=== PATIENT | male | born 1965 | race African-American/Black ===

== ENCOUNTER 2020-11-23 19:36 | Inpatient (IN) ==
[2020-11-23] MEDS ORDERED: dexAMETHasone**PF** 10 MG/ML VIAL IV ONE (19:44)
[2020-11-23] MEDS ORDERED: diphenhydrAMINE 50 MG/ML VIAL IV STA (19:44)
[2020-11-23] MEDS ORDERED: SODIUM CHLORIDE 0.9% 1000ML 1,000 ML IV ONE ×2 (19:44→22:06)
[2020-11-23] MEDS ORDERED: ACETAMINOPHEN 500 MG TAB PO STA (19:44)
[2020-11-23] MEDS ORDERED: PROMETHAZINE 12.5 MG/50.5 ML BAG IV STA (19:44)
[2020-11-23] MEDS ORDERED: cefTRIAXone SODIUM 2,000 MG/70 ML BAG IV STA (19:44)
[2020-11-23 20:31] LABS: Appearance Urine Clear (Clear); Bacteria Urine Automated Negative (Negative); Bilirubin Urine Negative (Negative); Blood Urine 1+ (Negative); Color Urine Yellow; Epithelial Cell Urine Auto 20-30 /lpf (0-5); Glucose Urine UA Negative (Negative); Ketones Urine Negative (Negative); Leukocyte Esterase Urine 2+ (Negative); Nitrite Urine Negative (Negative); Specific Gravity Urine 1.014 (1.000-1.030); Urobilinogen Urine Negative (Negative); WBC Urine Automated >30 /hpf (0-5)
--- NOTE | 2020-11-23 20:39 | CT Scan Report ---
CT SCAN OF THE BRAIN WITHOUT IV CONTRAST CLINICAL HISTORY: Headache. COMPARISON STUDY: No priors. TECHNIQUE: Unenhanced axial CT scan of the brain is performed from the vertex to the skull base. A d ose lowering technique was utilized adhering to the principles of ALARA. CT DOSE: 1462.50 mGycm FINDINGS: Brain parenchyma: The brain parenchyma is normal in appearance. There is no hemorrhage, mass effect, or evidence of acute territorial ischemia by CT criteria. Sampson-white matter differentiation is preser cherrie. No extra-axial fluid collection is seen. Ventricles, sulci, cisterns: Normal in configuration. Intracranial vasculature: The visualized intracranial vasculature at the skull base is normal in appe arance. Calvarium: Unremarkable. Sinuses and mastoids: The visualized paranasal sinuses are clear. The mastoid air cells are well pneu matized. Orbits: The bony orbits are grossly intact. IMPRESSION: No acute intracranial abnormality. ACT 112: Negative or not required by law. Electronically signed by: Griffin Amos M.D. 11/23/2020 8:38 PM
--- NOTE | 2020-11-23 20:50 | Emergency Department Note ---
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 The patient had a gradual onset 2 nights ago of a headache which is frontal that he describes as the "worst headache of his life". He states the headache has been waxing and waning but was constant through the entire 2 days. He has been trying [id number] medication without relief. He denies having any trauma. He denies having any neck stiffness or back pain. He was noted to have a very elevated temperature prior to arrival. He states that he has no cough but he does smoke tobacco products. He denies having any dysuria or frequency. He has no rashes. The patient does not have any significant past medical history other than tobacco use. 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 He was not seen by a provider prior to calling 911 and come to the emergency department via ambulance. He was given Toradol and Zofran prior to arrival. He had only minimal improvement of his symptoms. ROS: See above HPI for pertinent positives & negatives. A total of 10 systems reviewed and were otherwise negative. PAST MEDICAL HISTORY: See Below PAST SURGICAL HISTORY: See Below FAMILY HISTORY: See Below SOCIAL HISTORY: See Below HOME MEDICATIONS: See Below ALLERGIES: See Below VITALS: See Below PHYSICAL EXAMINATION: GENERAL: The patient is awake and alert. He is very anxious appearing and appears to be uncomfortable. EYES: The conjunctivae are clear. The pupils are round and reactive. EARS, NOSE, MOUTH AND THROAT: The nose is without any evidence of any deformity. NECK: The neck is nontender and supple. RESPIRATORY: Diminished breath sounds are noted throughout with scattered rhonchi. CARDIOVASCULAR: Tachycardic rate with regular rhythm was noted. There was no definite murmur GASTROINTESTINAL: The abdomen is soft. Abdomen is nontender. MUSCULOSKELETAL/EXTREMITIES: There is no evidence of gross deformity full range of motion is noted in the hips and shoulders. SKIN: There is no obvious evidence of any rash. There are no petechiae, pallor or cyanosis noted. NEUROLOGIC: Patient is awake alert and oriented x3 strength is symmetric patellar reflexes are 2+ bilaterally MEDICAL DECISION MAKING: The patient is a 55-year-old male who presented to the emergency department by ambulance for an evaluation of severe headache. The patient was found to have a fever. He did not have meningismus. The patient was initially treated with Decadron and Rocephin in the emergency department because of concerns of meningitis given his significant fever. I discussed the patient's laboratory and radiographic studies with him. He was also treated with IV fluids. Ultimately the patient was found to have signs of pyelonephritis. The patient had an elevated white blood cell count as well. The patient is a fork truck operator and is not from the area. I am not sure if the patient will do well as an outpatient without at least initial inpatient management. I discussed this plan with the patient and he was agreeable. [facility] to inpatient management and they will evaluate the patient in the emergency department for further management and disposition. Triage Nursing notes reviewed. Prior medical records reviewed Vital Signs: reviewed and remarkable for tachycardia and fever. Differential diagnosis: Migraine headache, meningitis, sinusitis, CO exposure, ICH, SAH, infection, tumor, headache, sinus thrombosis, arterial dissection, as well as other pathologies. ER treatment provided: See below Diagnostics interpreted by me: ECG: EKG was obtained in the emergency department. My interpretation is sinus tachycardia at 112 bpm. There is no ectopy. There is no acute ST segment abnormalities noted. No previous tracing was available. Cardiac Monitoring: An order was placed for continuous cardiac monitoring. The monitor shows a rate of 85 bpm with sinus rhythm. Laboratory studies: As stated above and show below. Imaging studies: See below Consultation(s): I discussed this case with Dr. Sandoval who [facility] ED COURSE: Procedures: Lumbar Puncture Indication: Headache and fever. Verbal consent was obtained after the risks and benefits were explained, including but not limited to headache, bleeding/clotting, scarring, infection, pain, and bone/joint/nerve damage. At this time, the risks of the procedure are less than the risks of NOT performing the procedure. A time out was taken and the correct patient and site identified. The patient was placed in the seated position and the back was prepped with betadine and draped in the standard fashion. The L3 intervertebral space was identified, anesthetized locally with 1% lidocaine without epinephrine, and the spinal needle was inserted through the skin with the bevel parallel to the dural fibers. The needle was carefully advanced into the lumbar cistern and 4 tubes of clear CSF was obtained. The stylet was replaced and the needle was removed. A bandaid was placed and the patient was placed in the supine position. The patient tolerated the procedure well and there were no complications. Past Med/Surg History Social History Smoking Status: Current every day smoker Tobacco Type: Cigarettes Feels Safe at Home: Yes Allergies Allergies Allergy/AdvReac Type Severity Reaction Status Date / Time No Known Allergies Allergy Unverified 11/23/20 20:10 Home Meds Home Medications Medication Instructions Recorded Confirmed No Known Home Medications 11/23/20 11/23/20 Results & Data (ED) Vital Signs Vital Signs - 24 hr 11/23/20 19:51 11/23/20 20:37 11/23/20 21:00 Temperature 37.6 C H Temperature Source Oral Pulse Rate 114 H 110 H 109 H Pulse Rate [Apical] Pulse Rate from SpO2 Sensor 110 H 110 H Respiratory Rate 20 20 18 Blood Pressure 149/87 H 106/75 115/79 Blood Pressure [Left Arm] Blood Pressure Mean 107 85 91 Blood Pressure Mean [Left Arm] Pulse Oximetry 94 96 98 Oxygen Delivery Method Room Air Sepsis Recent Fever Within 48 Hours Yes Sepsis New/Unexplained Change in Mental Status N/A Sepsis Action Taken by Nursing No Action Required 11/23/20 21:30 11/23/20 22:01 11/23/20 22:29 Temperature Temperature Source Pulse Rate 106 H 100 H Pulse Rate [Apical] 101 H Pulse Rate from SpO2 Sensor 107 H Respiratory Rate 20 19 20 Blood Pressure 121/85 113/79 Blood Pressure [Left Arm] 113/79 Blood Pressure Mean 97 90 Blood Pressure Mean [Left Arm] 90 Pulse Oximetry 95 95 91 Oxygen Delivery Method Room Air Sepsis Recent Fever Within 48 Hours Sepsis New/Unexplained Change in Mental Status Sepsis Action Taken by Nursing 11/24/20 00:29 Temperature Temperature Source Pulse Rate Pulse Rate [Apical] 91 H Pulse Rate from SpO2 Sensor Respiratory Rate 20 Blood Pressure Blood Pressure [Left Arm] 120/86 Blood Pressure Mean Blood Pressure Mean [Left Arm] 97 Pulse Oximetry 92 Oxygen Delivery Method Room Air Sepsis Recent Fever Within 48 Hours Sepsis New/Unexplained Change in Mental Status Sepsis Action Taken by [facility] Medications Current Medication List: was personally reviewed by me Laboratory Data Attestation: I reviewed the patient's lab results. Result diagrams: 11/23/20 21:13 11/23/20 21:13 Lab Results 11/23/20 11/23/20 11/23/20 Range/Units 20:18 20:18 20:18 WBC (4.8-10.8) K/uL RBC (4.7-6.1) M/uL Hgb (14.0-18.0) g/dL Hct (42-52) % MCV (80-100) fL MCH (25-34) pg MCHC (32-36) g/dL RDW Std Deviation (36.4-46.3) fL RDW Coeff of Luis (11.5-14.5) % Plt Count (130-400) K/uL MPV (7.4-10.4) fL Immature Gran % (Auto) % Neut % (Auto) % Lymph % (Auto) % [place] % (Auto) % Eos % (Auto) % Baso % (Auto) % Neut # (Auto) (1.4-6.5) K/uL Lymph # (Auto) (1.2-3.4) K/uL [place] # (Auto) (0.11-0.59) K/uL Eos # (Auto) (0-0.5) K/uL Baso # (Auto) (0-0.2) K/uL Immature Gran # (Auto) (0.00-0.02) K/uL ESR (0-20) mm/hr PT (9.0-12.0) Seconds INR (0.9-1.1) APTT (21.0-31.0) Seconds PTT Ratio Sodium (136-145) mmol/L Potassium (3.5-5.1) mmol/L Chloride (98-107) mmol/L Carbon Dioxide (21-32) mmol/L Anion Gap (3-11) BUN (7-18) mg/dl Creatinine (0.6-1.4) mg/dl Est Cr Clr Drug Dosing ml/min Est GFR ( Amer) Est GFR (Non-Af Amer) BUN/Creatinine Ratio (10-20) Glucose (70-99) mg/dl Calcium (8.5-10.1) mg/dl Total Bilirubin (0.2-1) mg/dl AST (15-37) U/L ALT (12-78) U/L Alkaline Phosphatase (45-117) U/L Troponin I (0-0.045) ng/ml C-Reactive Protein (0-0.29) mg/dl Total Protein (6.4-8.2) gm/dl Albumin (3.4-5.0) gm/dl Globulin (2.5-4.0) gm/dl Albumin/Globulin Ratio (0.9-2) Procalcitonin (0-0.5) ng/ml Urine Color Yellow Urine Appearance Clear (Clear) Urine pH 8.0 H (4.5-7.5) Ur Specific [place] 1.014 (1.000-1.030) Urine Protein Trace H (Negative) Urine Glucose (UA) Negative (Negative) Urine Ketones Negative (Negative) Urine Blood 1+ H (Negative) Urine Nitrite Negative (Negative) Urine Bilirubin Negative (Negative) Urine Urobilinogen Negative (Negative) Ur Leukocyte Esterase 2+ H (Negative) Urine WBC (Auto) >30 H (0-5) /hpf Urine RBC (Auto) 5-10 H (0-4) /hpf U Hyaline Cast (Auto) 1-5 (0-5) /lpf U Epithel Cells (Auto) 20-30 H (0-5) /lpf Urine Bacteria (Auto) Negative (Negative) Fluid Comment CSF Appearance CSF Color Xanthrochromic CSF WBC (0-5) /uL CSF RBC (0-) /uL CSF Cell Count Tube # CSF Chemistry Tube # CSF Glucose (40-70) mg/dl CSF Total Protein (15-45) mg/dl COVID-19 Eval Order [facility] at [facility] SARS-CoV-2 (PCR) NEGATIVE (Negative) Influenza Type A (PCR) Negative (Neg) Influenza Type B (PCR) Negative (Neg) RSV (RT-PCR) Negative (Neg) 11/23/20 11/23/20 11/23/20 Range/Units 21:13 21:13 21:13 WBC 26.78 H (4.8-10.8) K/uL RBC 4.97 (4.7-6.1) M/uL Hgb 14.7 (14.0-18.0) g/dL Hct 41.9 L (42-52) % MCV 84.3 (80-100) fL MCH 29.6 (25-34) pg MCHC 35.1 (32-36) g/dL RDW Std Deviation 41.3 (36.4-46.3) fL RDW Coeff of Luis 13.5 (11.5-14.5) % Plt Count 291 (130-400) K/uL MPV 9.4 (7.4-10.4) fL Immature Gran % (Auto) 0.5 % Neut % (Auto) 89.7 % Lymph % (Auto) 6.2 % [place] % (Auto) 3.5 % Eos % (Auto) 0.0 % Baso % (Auto) 0.1 % Neut # (Auto) 24.02 H (1.4-6.5) K/uL Lymph # (Auto) 1.65 (1.2-3.4) K/uL [place] # (Auto) 0.94 H (0.11-0.59) K/uL Eos # (Auto) 0.00 (0-0.5) K/uL Baso # (Auto) 0.03 (0-0.2) K/uL Immature Gran # (Auto) 0.14 H (0.00-0.02) K/uL ESR (0-20) mm/hr PT 12.4 H (9.0-12.0) Seconds INR 1.2 H (0.9-1.1) APTT 28.9 (21.0-31.0) Seconds PTT Ratio 1.1 Sodium 135 L (136-145) mmol/L Potassium 3.9 (3.5-5.1) mmol/L Chloride 103 (98-107) mmol/L Carbon Dioxide 26 (21-32) mmol/L Anion Gap 6.0 (3-11) BUN 7 (7-18) mg/dl Creatinine 1.14 (0.6-1.4) mg/dl Est Cr Clr Drug Dosing 82.7 ml/min Est GFR ( Amer) 84.0 Est GFR (Non-Af Amer) 72.5 BUN/Creatinine Ratio 6.1 L (10-20) Glucose 100 H (70-99) mg/dl Calcium 8.8 (8.5-10.1) mg/dl Total Bilirubin 0.6 (0.2-1) mg/dl AST 18 (15-37) U/L ALT 44 (12-78) U/L Alkaline Phosphatase 97 (45-117) U/L Troponin I < 0.015 (0-0.045) ng/ml C-Reactive Protein 16.20 H (0-0.29) mg/dl Total Protein 7.5 (6.4-8.2) gm/dl Albumin 3.1 L (3.4-5.0) gm/dl Globulin 4.4 H (2.5-4.0) gm/dl Albumin/Globulin Ratio 0.7 L (0.9-2) Procalcitonin (0-0.5) ng/ml Urine Color Urine Appearance (Clear) Urine pH (4.5-7.5) Ur Specific [place] (1.000-1.030) Urine Protein (Negative) Urine Glucose (UA) (Negative) Urine Ketones (Negative) Urine Blood (Negative) Urine Nitrite (Negative) Urine Bilirubin (Negative) Urine Urobilinogen (Negative) Ur Leukocyte Esterase (Negative) Urine WBC (Auto) (0-5) /hpf Urine RBC (Auto) (0-4) /hpf U Hyaline Cast (Auto) (0-5) /lpf U Epithel Cells (Auto) (0-5) /lpf Urine Bacteria (Auto) (Negative) Fluid Comment CSF Appearance CSF Color Xanthrochromic CSF WBC (0-5) /uL CSF RBC (0-) /uL CSF Cell Count Tube # CSF Chemistry Tube # CSF Glucose (40-70) mg/dl CSF Total Protein (15-45) mg/dl COVID-19 Eval Order SARS-CoV-2 (PCR) (Negative) Influenza Type A (PCR) (Neg) Influenza Type B (PCR) (Neg) RSV (RT-PCR) (Neg) 11/23/20 11/23/20 11/23/20 Range/Units 21:13 21:13 22:02 WBC (4.8-10.8) K/uL RBC (4.7-6.1) M/uL Hgb (14.0-18.0) g/dL Hct (42-52) % MCV (80-100) fL MCH (25-34) pg MCHC (32-36) g/dL RDW Std Deviation (36.4-46.3) fL RDW Coeff of Luis (11.5-14.5) % Plt Count (130-400) K/uL MPV (7.4-10.4) fL Immature Gran % (Auto) % Neut % (Auto) % Lymph % (Auto) % [place] % (Auto) % Eos % (Auto) % Baso % (Auto) % Neut # (Auto) (1.4-6.5) K/uL Lymph # (Auto) (1.2-3.4) K/uL [place] # (Auto) (0.11-0.59) K/uL Eos # (Auto) (0-0.5) K/uL Baso # (Auto) (0-0.2) K/uL Immature Gran # (Auto) (0.00-0.02) K/uL ESR 22 H (0-20) mm/hr PT (9.0-12.0) Seconds INR (0.9-1.1) APTT (21.0-31.0) Seconds PTT Ratio Sodium (136-145) mmol/L Potassium (3.5-5.1) mmol/L Chloride (98-107) mmol/L Carbon Dioxide (21-32) mmol/L Anion Gap (3-11) BUN (7-18) mg/dl Creatinine (0.6-1.4) mg/dl Est Cr Clr Drug Dosing ml/min Est GFR ( Amer) Est GFR (Non-Af Amer) BUN/Creatinine Ratio (10-20) Glucose (70-99) mg/dl Calcium (8.5-10.1) mg/dl Total Bilirubin (0.2-1) mg/dl AST (15-37) U/L ALT (12-78) U/L Alkaline Phosphatase (45-117) U/L Troponin I (0-0.045) ng/ml C-Reactive Protein (0-0.29) mg/dl Total Protein (6.4-8.2) gm/dl Albumin (3.4-5.0) gm/dl Globulin (2.5-4.0) gm/dl Albumin/Globulin Ratio (0.9-2) Procalcitonin 0.91 H (0-0.5) ng/ml Urine Color Urine Appearance (Clear) Urine pH (4.5-7.5) Ur Specific [place] (1.000-1.030) Urine Protein (Negative) Urine Glucose (UA) (Negative) Urine Ketones (Negative) Urine Blood (Negative) Urine Nitrite (Negative) Urine Bilirubin (Negative) Urine Urobilinogen (Negative) Ur Leukocyte Esterase (Negative) Urine WBC (Auto) (0-5) /hpf Urine RBC (Auto) (0-4) /hpf U Hyaline Cast (Auto) (0-5) /lpf U Epithel Cells (Auto) (0-5) /lpf Urine Bacteria (Auto) (Negative) Fluid Comment CSF Appearance Clear CSF Color Colorless Xanthrochromic No xanthochromia CSF WBC 2 (0-5) /uL CSF RBC 8 (0-) /uL CSF Cell Count Tube # 3 CSF Chemistry Tube # 1 CSF Glucose 70 (40-70) mg/dl CSF Total Protein 83.6 H (15-45) mg/dl COVID-19 Eval Order SARS-CoV-2 (PCR) (Negative) Influenza Type A (PCR) (Neg) Influenza Type B (PCR) (Neg) RSV (RT-PCR) (Neg) Administered Medications Discontinued Medications Acetaminophen (Acetaminophen 500 Mg Tab) 1,000 mg PO NOW STA Stop: 11/23/20 19:45 Last Admin: 11/23/20 20:24 Dose: 1,000 mg Documented by: [id number] Dexamethasone Sodium Phosphate (DexamethasonePf 10 Mg/Ml Vial) 10 mg IV NOW ONE Stop: 11/23/20 19:45 Last Admin: 11/23/20 20:24 Dose: 10 mg Documented by: [id number] Diphenhydramine HCl (Diphenhydramine 50 Mg/Ml Vial) 25 mg IV NOW STA Stop: 11/23/20 19:45 Last Admin: 11/23/20 20:24 Dose: 25 mg Documented by: [id number] Sodium Chloride (Nss 1000ml) 1,000 mls @ 999 mls/hr IV .Q1H1M ONE Stop: 11/23/20 20:44 Last Infusion: 11/23/20 21:17 Dose: 0 mls/hr Documented by: [id number] Admin: 11/23/20 20:24 Dose: 999 mls/hr Documented by: [id number] Promethazine HCl (Phenergan) 12.5 mg in 50.5 mls @ 202 mls/hr IV NOW STA Stop: 11/23/20 19:58 Last Infusion: 11/23/20 20:38 Dose: 0 mls/hr Documented by: [id number] Admin: 11/23/20 20:24 Dose: 202 mls/hr Documented by: [id number] Ceftriaxone Sodium (Rocephin) 2,000 mg in 70 mls @ 140 mls/hr IV NOW STA Stop: 11/23/20 20:13 Last Infusion: 11/23/20 21:17 Dose: 0 mls/hr Documented by: [id number] Admin: 11/23/20 20:38 Dose: 140 mls/hr Documented by: [id number] Sodium Chloride (Nss 1000ml) 1,000 mls @ 999 mls/hr IV .Q1H1M ONE Stop: 11/23/20 23:06 Last Infusion: 11/23/20 23:28 Dose: 0 mls/hr Documented by: [id number] Admin: 11/23/20 22:22 Dose: 999 mls/hr Documented by: [id number] Ioversol (Optiray 300 100ml) 89 ml IV ONCE ONE Stop: 11/23/20 22:49 Last Admin: 11/23/20 22:48 Dose: 89 ml Documented by: [id number] Imaging Data Radiologist's Impression: Chest X-Ray 11/23/20 19:44 SINGLE VIEW CHEST CLINICAL HISTORY: Fever. FINDINGS: An AP, portable, upright chest radiograph is obtained. No prior studies are available for comparison at the time of dictation. The cardiome diastinal silhouette is unremarkable. There is mild bibasilar atelectasis. No airspace consolidation or large pleural effusion is identified. No pneumothorax is seen. The bony thorax is grossly intact. IMPRESSION: No active disease in the chest. ACT 112: Negative or not required by law. Electronically signed by: Griffin Amos M.D. 11/23/2020 10:[address] 11/23/20 19:44 CT SCAN OF THE BRAIN WITHOUT IV CONTRAST CLINICAL HISTORY: Headache. COMPARISON STUDY: No priors. TECHNIQUE: Unenhanced axial CT scan of the brain is performed from the vertex to the skull base. A dose lowering technique was utilized adhering to the principles of ALARA. CT DOSE: 1462.50 mGycm FINDINGS: Brain parenchyma: The brain parenchyma is normal in appearance. There is no hemorrhage, mass effect, or evidence of acute territorial ischemia by CT criteria. Sampson-white matter differentiation is preserved. No extra-axial fluid collection is seen. Ventricles, sulci, cisterns: Normal in configuration. Intracranial vasculature: The visualized intracranial vasculature at the skull base is normal in appearance. Calvarium: Unremarkable. Sinuses and mastoids: The visualized paranasal sinuses are clear. The mastoid air cells are well pneumatized. Orbits: The bony orbits are grossly intact. IMPRESSION: No acute intracranial abnormality. ACT 112: Negative or not required by law. Electronically signed by: Griffin Amos M.D. 11/23/2020 8:38 PM Abdomen/Pelvis CT 11/23/20 22:06 CT SCAN OF THE ABDOMEN AND PELVIS WITH IV CONTRAST CLINICAL HISTORY: Fever. COMPARISON STUDY: No priors. TECHNIQUE: Following the IV administration of 89 cc of Optiray 320, CT scan of the abdomen and pelvis is performed from the lung bases to the proximal femora. Images are reviewed in the axial, sagittal, and coronal planes. IV contrast was administered without complication. A dose lowering technique was utilized adhering to the principles of ALARA. The examination is compromised by motion artifact. CT DOSE: 620.61 mGy.cm FINDINGS: Lung bases: The heart is normal in size and without pericardial effusion. The lung bases are clear noting bibasilar atelectasis. Liver: The contrast-enhanced liver is normal in size, contour, and attenuation. There is no intrahepatic biliary ductal dilatation. The hepatic veins and portal veins are patent. Gallbladder: Unremarkable. Spleen: Normal in size and attenuation. Pancreas: Unremarkable. Adrenal glands: Unremarkable. Kidneys: The contrast enhanced kidneys are normal in size and without hydronephrosis. The kidneys enhance symmetrically. Abdominal vasculature: The abdominal aorta is normal in course and caliber noting scattered foci of atherosclerotic calcification. Bowel: There is no bowel obstruction. The appendix is well-visualized and normal. Peritoneum: No intraperitoneal free air is identified. Trace free fluid is seen in the pelvis. There is a fat-containing umbilical hernia. Lymphadenopathy: Mildly enlarged retroperitoneal and left iliac chain lymph nodes measure up to 10 mm in short axis. A mildly enlarged left inguinal node with surrounding infiltration on image #465 measures 2.3 x 1.4 cm. Pelvic viscera: The prostate gland is mildly enlarged and heterogeneous noting median lobe hypertrophy. The bladder wall appears thickened and trabeculated indicating chronic outlet obstruction. Skeletal structures: There is moderate lumbosacral spondylosis. No lytic or blastic lesions are seen. IMPRESSION: 1. There is a mildly enlarged left inguinal lymph node with surrounding infiltration, as well as minimally enlarged left iliac chain and retroperitoneal nodes. These are nonspecific and likely reactive. Correlated clearly for evidence of a left lower extremity infectious/inflammatory process. 2. Trace nonspecific free fluid in the pelvis is a nonspecific but abnormal finding and may be reactive. 3. Additional findings as above. ACT 112: Negative or not required by law. Electronically signed by: Griffin Amos M.D. 11/23/2020 11:08 PM Discharge Plan Visit Data Chief Complaint: Headache Stated Complaint: HEADACHE ED Provider: Luke Fabian Discharge Problem: Acute pyelonephritis, Headache, Fever Patient Disposition: Being Evaluated by Hospitalist Condition: Good Forms Stand Alone Forms: [id number] Prescriptions Prescriptions: No Action No Known Home Medications RF: 0 Referrals Referrals: PCP,NO [Primary Care Provider] - Discharge Problem: Headache Qualifiers: Headache type: unspecified Headache chronicity pattern: unspecified pattern Intractability: not intractable Qualified Code(s): R51.9 - Headache, unspecified Fever Qualifiers: Fever type: unspecified Qualified Code(s): R50.9 - Fever, unspecified
[2020-11-23 20:56] LABS: Protein Urine Trace (Negative)
[2020-11-23 21:31] LABS: Influenza A virus by PCR Negative (Neg); Influenza B virus by PCR Negative (Neg); RSV by PCR Negative (Neg); SARS CoV2 RNA(COVID-19) InHosp NEGATIVE (Negative)
[2020-11-23 21:34] LABS: Hematocrit (blood only) 41.9 % (42-52); Hemoglobin 14.7 g/dL (14.0-18.0); Mean Corpuscular Hemoglobin 29.6 pg (25-34); Mean Corpuscular Hgb Conc 35.1 g/dL (32-36); Mean Corpuscular Volume 84.3 fL (80-100); Mean Platelet Volume 9.4 fL (7.4-10.4); Platelet Count 291 K/uL (130-400); RDW Coefficient of Variation 13.5 % (11.5-14.5); RDW Standard Deviation 41.3 fL (36.4-46.3); Red Blood Count 4.97 M/uL (4.7-6.1); White Blood Count 26.78 K/uL (4.8-10.8)
[2020-11-23 21:47] LABS: INR 1.2 (0.9-1.1); Partial Thromboplastin Ratio 1.1; Partial Thromboplastin Time 28.9 Seconds (21.0-31.0); Prothrombin Time 12.4 Seconds (9.0-12.0)
[2020-11-23 21:55] LABS: Alanine Aminotransferase 44 U/L (12-78); Albumin Level 3.1 gm/dl (3.4-5.0); Aspartate Aminotransferase 18 U/L (15-37); BUN Creatinine Ratio 6.1 (10-20); Blood Urea Nitrogen 7 mg/dl (7-18); Calcium 8.8 mg/dl (8.5-10.1); Carbon Dioxide 26 mmol/L (21-32); Chloride 103 mmol/L (98-107); Creatinine Clr Calc Pharmacy 82.7 ml/min; Est GFR (Non-African American) 72.5; Glucose 100 mg/dl (70-99); Potassium 3.9 mmol/L (3.5-5.1); Sodium 135 mmol/L (136-145)
[2020-11-23 22:00] LABS: Albumin Globulin Ratio 0.7 (0.9-2); Alkaline Phosphatase 97 U/L (45-117); Bilirubin,Total 0.6 mg/dl (0.2-1); Globulin 4.4 gm/dl (2.5-4.0); Total Protein 7.5 gm/dl (6.4-8.2); Troponin I < 0.015 ng/ml (0-0.045)
[2020-11-23 22:24] LABS: Basophils # (auto) 0.03 K/uL (0-0.2); Basophils % (auto) 0.1 %; Immature Granulocytes # (auto) 0.14 K/uL (0.00-0.02); Immature Granulocytes % (auto) 0.5 %; Lymphocytes # (auto) 1.65 K/uL (1.2-3.4); Lymphocytes % (auto) 6.2 %; Monocytes # (auto) 0.94 K/uL (0.11-0.59); Monocytes % (auto) 3.5 %; Neutrophils # (auto) 24.02 K/uL (1.4-6.5); Neutrophils % (auto) 89.7 %
--- NOTE | 2020-11-23 22:33 | XRay Report ---
SINGLE VIEW CHEST CLINICAL HISTORY: Fever. FINDINGS: An AP, portable, upright chest radiograph is obtained. No prior studies are available for c omparison at the time of dictation. The cardiomediastinal silhouette is unremarkable. There is mild bibasilar atelectasis. No airspace consolidation or large pleural effusion is identified. No pneumoth orax is seen. The bony thorax is grossly intact. IMPRESSION: No active disease in the chest. ACT 112: Negative or not required by law. Electronically signed by: Griffin Amos M.D. 11/23/2020 10:32 PM
[2020-11-23 22:39] LABS: CSF Glucose 70 mg/dl (40-70); Total Protein CSF 83.6 mg/dl (15-45)
[2020-11-23 22:47] LABS: Appearance CSF Clear; CSF Count Tube # 3; CSF Xanthrochromic No xanthochromia; Color CSF Colorless; Red Blood Cell CSF (A) 8 /uL (0-); White Blood Cell CSF (A) 2 /uL (0-5)
[2020-11-23] MEDS ORDERED: OPTIRAY 300 100mL IV ONE (22:48)
--- NOTE | 2020-11-23 23:10 | CT Scan Report ---
CT SCAN OF THE ABDOMEN AND PELVIS WITH IV CONTRAST CLINICAL HISTORY: Fever. COMPARISON STUDY: No priors. TECHNIQUE: Following the IV administration of 89 cc of Optiray 320, CT scan of the abdomen and pelvi s is performed from the lung bases to the proximal femora. Images are reviewed in the axial, sagittal , and coronal planes. IV contrast was administered without complication. A dose lowering technique wa s utilized adhering to the principles of ALARA. The examination is compromised by motion artifact. CT DOSE: 620.61 mGy.cm FINDINGS: Lung bases: The heart is normal in size and without pericardial effusion. The lung bases are clear no ting bibasilar atelectasis. Liver: The contrast-enhanced liver is normal in size, contour, and attenuation. There is no intrahepa tic biliary ductal dilatation. The hepatic veins and portal veins are patent. Gallbladder: Unremarkable. Spleen: Normal in size and attenuation. Pancreas: Unremarkable. Adrenal glands: Unremarkable. Kidneys: The contrast enhanced kidneys are normal in size and without hydronephrosis. The kidneys enh ance symmetrically. Abdominal vasculature: The abdominal aorta is normal in course and caliber noting scattered foci of a therosclerotic calcification. Bowel: There is no bowel obstruction. The appendix is well-visualized and normal. Peritoneum: No intraperitoneal free air is identified. Trace free fluid is seen in the pelvis. There is a fat-containing umbilical hernia. Lymphadenopathy: Mildly enlarged retroperitoneal and left iliac chain lymph nodes measure up to 10 mm in short axis. A mildly enlarged left inguinal node with surrounding infiltration on image #465 seven ures 2.3 x 1.4 cm. Pelvic viscera: The prostate gland is mildly enlarged and heterogeneous noting median lobe hypertroph y. The bladder wall appears thickened and trabeculated indicating chronic outlet obstruction. Skeletal structures: There is moderate lumbosacral spondylosis. No lytic or blastic lesions are seen. IMPRESSION: 1. There is a mildly enlarged left inguinal lymph node with surrounding infiltration, as well as mini luan enlarged left iliac chain and retroperitoneal nodes. These are nonspecific and likely reactive. Correlated clearly for evidence of a left lower extremity infectious/inflammatory process. 2. Trace nonspecific free fluid in the pelvis is a nonspecific but abnormal finding and may be reacti ve. 3. Additional findings as above. ACT 112: Negative or not required by law. Electronically signed by: Griffin Amos M.D. 11/23/2020 11:08 PM
[2020-11-23 23:14] LABS: CSF Chemistry Tube # 1
--- NOTE | 2020-11-24 00:45 | History & Physical Report ---
Date of Service November 24, 2020 Assessment & Plan (1) Headache: 2d of severe VALENZUELA, report of fever, laboratory evidence of infection to include leukocytosis, elevated procalcitonin. LP performed by ER staff with elevated protein of 83.6, otherwise unremarkable. Gram stain with no WBC or organisms. Concern for aseptic meningitis as underlying cause. Patient presently afebrile, HD stable, nonfocal neurological exam. Altered level of consciousness seems to have occurred after receiving Benadryl and Phenergen in the ER. Immunocompetent -Observation to medical -Check CSF panel -Neuro checks with [facility] -MRI brain Present on Admission?: Yes (2) Fever: Follow cultures -Empiric Vancomycin and Ceftriaxone Present on Admission?: Yes History of Present Illness Chief Complaint: Headache Primary Care Provider: NO PCP Kevin Waite is a 55yo male with no significant past medical history presenting with VALENZUELA and fever. 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 He reports gradual onset of VALENZUELA over the last 2 nights - frontal, severe, "worst headache of his life has been present the entire time but waxing and waning in severity. OTC agents with no relief. He denies trauma, neck stiffness, back pain, CP, palpitations, cough, SOB, abdominal pain, nausea, vomiting, diarrhea or constipation Denies rigors, malaise, back pain, flank pain, dysuria, rashes, joint pain. NO additional complaints at this time. Patient reportedly febrile to 103 prior to arrival. He received Benadryl and Phenergan prior to my encounter - patient quite somnolent but arousable -answers some questions appropriately then falls back to sleep LP performed in the ER ER Course: Dexamethasone, Benadryl,, Phenergan NSS, Tylenol, Ceftriaxone Allergies Allergy/AdvReac Type Severity Reaction Status Date / Time No Known Allergies Allergy Unverified 11/23/20 20:10 Home Medications Medication Instructions Recorded Confirmed Type No Known Home Medications 11/23/20 11/23/20 History Past Med/Surg History Medical History (Updated 11/24/20 @ 03:47 by Maria Fernanda Sandoval DO) No significant past medical history Surgical History (Updated 11/24/20 @ 03:47 by Maria Fernanda Sandoval DO) No significant past surgical history Family History (Updated 11/24/20 @ 03:47 by Maria Fernanda Sandoval DO) Other No significant family history Social History Smoking Status: Current every day smoker Tobacco Type: Cigarettes Cigarettes Per Day: 20; Hx Alcohol Use: No Hx Substance Use: No Preferred Language: Wolof Communication Ability: Effective Direct Care Worker Required: No Beliefs That Will Affect Care: None Current Living Situation: Parent Other Information That Helps Us Care for You: No Feels Safe at Home: Yes Safety Concerns: Feels Safe At This Time Assistive Devices: Glasses Review of Systems Review of Systems: All systems reviewed & are unremarkable except as noted in HPI & below Physical Exam Physical Exam: General: patient somnolent, arousable, answers questions appropriately then returns to sleep, non-toxic in appearance, AA&O x 3 Skin: warm, dry, intact, no rashes or lesions HEENT: NC/AT, Pupils small, equal and round bilaterally, reactive to light, EOMI, anicteric sclera, conjunctiva without injection, external ear normal to inspection and nontender, nares patent, moist mucus membranes, dentition intact, no oropharyngeal lesions, neck supple, trachea midline, no LAD, no thyromegaly, no JVD Heart: +S1/S2, regular, no m/r/g Lungs: equal air entry bilaterally, no rales/rhonchi/wheezes Abd: +BS, soft, NT/ND, no masses/organomegaly/ascites Ext: warm, 2+ pulses in UE/LE bilaterally, no clubbing/cyanosis or edema Neuro: nonfocal, patient somnolent, arousable, AA&O x 3, speech intact, no facial droop, moving all extremities on command with equal strength 5/5 Results & Data Results & Data ([facility]) Vital Signs (Past 12 Hours) Vital Signs Temp Pulse Pulse Resp BP BP Pulse Ox 11/24/20 00:29 91 H 20 120/86 92 11/23/20 22:29 101 H 20 113/79 91 11/23/20 22:01 100 H 19 113/79 95 11/23/20 21:30 106 H 20 121/85 95 11/23/20 21:00 109 H 18 115/79 98 11/23/20 20:37 110 H 20 106/75 96 11/23/20 19:51 37.6 C H 114 H 20 149/87 H 94 Laboratory Results Lab Results 11/23/20 11/23/20 11/23/20 Range/Units 20:18 20:18 20:18 WBC (4.8-10.8) K/uL RBC (4.7-6.1) M/uL Hgb (14.0-18.0) g/dL Hct (42-52) % MCV (80-100) fL MCH (25-34) pg MCHC (32-36) g/dL RDW Std Deviation (36.4-46.3) fL RDW Coeff of Luis (11.5-14.5) % Plt Count (130-400) K/uL MPV (7.4-10.4) fL Immature Gran % (Auto) % Neut % (Auto) % Lymph % (Auto) % Walsh % (Auto) % Eos % (Auto) % Baso % (Auto) % Neut # (Auto) (1.4-6.5) K/uL Lymph # (Auto) (1.2-3.4) K/uL Walsh # (Auto) (0.11-0.59) K/uL Eos # (Auto) (0-0.5) K/uL Baso # (Auto) (0-0.2) K/uL Immature Gran # (Auto) (0.00-0.02) K/uL ESR (0-20) mm/hr PT (9.0-12.0) Seconds INR (0.9-1.1) APTT (21.0-31.0) Seconds PTT Ratio Sodium (136-145) mmol/L Potassium (3.5-5.1) mmol/L Chloride (98-107) mmol/L Carbon Dioxide (21-32) mmol/L Anion Gap (3-11) BUN (7-18) mg/dl Creatinine (0.6-1.4) mg/dl Est Cr Clr Drug Dosing ml/min Est GFR ( Amer) Est GFR (Non-Af Amer) BUN/Creatinine Ratio (10-20) Glucose (70-99) mg/dl Calcium (8.5-10.1) mg/dl Magnesium (1.8-2.4) mg/dl Total Bilirubin (0.2-1) mg/dl AST (15-37) U/L ALT (12-78) U/L Alkaline Phosphatase (45-117) U/L Total Creatine Kinase (39-308) U/L Troponin I (0-0.045) ng/ml C-Reactive Protein (0-0.29) mg/dl Total Protein (6.4-8.2) gm/dl Albumin (3.4-5.0) gm/dl Globulin (2.5-4.0) gm/dl Albumin/Globulin Ratio (0.9-2) Procalcitonin (0-0.5) ng/ml Urine Color Yellow Urine Appearance Clear (Clear) Urine pH 8.0 H (4.5-7.5) Ur Specific Cocoa 1.014 (1.000-1.030) Urine Protein Trace H (Negative) Urine Glucose (UA) Negative (Negative) Urine Ketones Negative (Negative) Urine Blood 1+ H (Negative) Urine Nitrite Negative (Negative) Urine Bilirubin Negative (Negative) Urine Urobilinogen Negative (Negative) Ur Leukocyte Esterase 2+ H (Negative) Urine WBC (Auto) >30 H (0-5) /hpf Urine RBC (Auto) 5-10 H (0-4) /hpf U Hyaline Cast (Auto) 1-5 (0-5) /lpf U Epithel Cells (Auto) 20-30 H (0-5) /lpf Urine Bacteria (Auto) Negative (Negative) Fluid Comment CSF Appearance CSF Color Xanthrochromic CSF WBC (0-5) /uL CSF RBC (0-) /uL CSF Cell Count Tube # CSF Chemistry Tube # CSF Glucose (40-70) mg/dl CSF Total Protein (15-45) mg/dl Urine Opiates Screen (Neg) Ur Methadone, Qual (Neg) Urine Barbiturates (Neg) Ur Phencyclidine (PCP) (Neg) U Amphetamin/Meth Scrn (Neg) MDMA (Ecstasy) Screen (Neg) U Benzodiazepines Scrn (Neg) Ur Cocaine Metabolite (Neg) U Marijuana (THC) Screen (Neg) COVID-19 Eval Order CovFluRsv at [facility] SARS-CoV-2 (PCR) NEGATIVE (Negative) Influenza Type A (PCR) Negative (Neg) Influenza Type B (PCR) Negative (Neg) RSV (RT-PCR) Negative (Neg) 11/23/20 11/23/20 11/23/20 Range/Units 20:18 21:13 21:13 WBC 26.78 H (4.8-10.8) K/uL RBC 4.97 (4.7-6.1) M/uL Hgb 14.7 (14.0-18.0) g/dL Hct 41.9 L (42-52) % MCV 84.3 (80-100) fL MCH 29.6 (25-34) pg MCHC 35.1 (32-36) g/dL RDW Std Deviation 41.3 (36.4-46.3) fL RDW Coeff of Luis 13.5 (11.5-14.5) % Plt Count 291 (130-400) K/uL MPV 9.4 (7.4-10.4) fL Immature Gran % (Auto) 0.5 % Neut % (Auto) 89.7 % Lymph % (Auto) 6.2 % Walsh % (Auto) 3.5 % Eos % (Auto) 0.0 % Baso % (Auto) 0.1 % Neut # (Auto) 24.02 H (1.4-6.5) K/uL Lymph # (Auto) 1.65 (1.2-3.4) K/uL Walsh # (Auto) 0.94 H (0.11-0.59) K/uL Eos # (Auto) 0.00 (0-0.5) K/uL Baso # (Auto) 0.03 (0-0.2) K/uL Immature Gran # (Auto) 0.14 H (0.00-0.02) K/uL ESR (0-20) mm/hr PT 12.4 H (9.0-12.0) Seconds INR 1.2 H (0.9-1.1) APTT 28.9 (21.0-31.0) Seconds PTT Ratio 1.1 Sodium (136-145) mmol/L Potassium (3.5-5.1) mmol/L Chloride (98-107) mmol/L Carbon Dioxide (21-32) mmol/L Anion Gap (3-11) BUN (7-18) mg/dl Creatinine (0.6-1.4) mg/dl Est Cr Clr Drug Dosing ml/min Est GFR ( Amer) Est GFR (Non-Af Amer) BUN/Creatinine Ratio (10-20) Glucose (70-99) mg/dl Calcium (8.5-10.1) mg/dl Magnesium (1.8-2.4) mg/dl Total Bilirubin (0.2-1) mg/dl AST (15-37) U/L ALT (12-78) U/L Alkaline Phosphatase (45-117) U/L Total Creatine Kinase (39-308) U/L Troponin I (0-0.045) ng/ml C-Reactive Protein (0-0.29) mg/dl Total Protein (6.4-8.2) gm/dl Albumin (3.4-5.0) gm/dl Globulin (2.5-4.0) gm/dl Albumin/Globulin Ratio (0.9-2) Procalcitonin (0-0.5) ng/ml Urine Color Urine Appearance (Clear) Urine pH (4.5-7.5) Ur Specific Cocoa (1.000-1.030) Urine Protein (Negative) Urine Glucose (UA) (Negative) Urine Ketones (Negative) Urine Blood (Negative) Urine Nitrite (Negative) Urine Bilirubin (Negative) Urine Urobilinogen (Negative) Ur Leukocyte Esterase (Negative) Urine WBC (Auto) (0-5) /hpf Urine RBC (Auto) (0-4) /hpf U Hyaline Cast (Auto) (0-5) /lpf U Epithel Cells (Auto) (0-5) /lpf Urine Bacteria (Auto) (Negative) Fluid Comment CSF Appearance CSF Color Xanthrochromic CSF WBC (0-5) /uL CSF RBC (0-) /uL CSF Cell Count Tube # CSF Chemistry Tube # CSF Glucose (40-70) mg/dl CSF Total Protein (15-45) mg/dl Urine Opiates Screen Neg (Neg) Ur Methadone, Qual Neg (Neg) Urine Barbiturates Neg (Neg) Ur Phencyclidine (PCP) Neg (Neg) U Amphetamin/Meth Scrn Pos H (Neg) MDMA (Ecstasy) Screen Pos H (Neg) U Benzodiazepines Scrn Neg (Neg) Ur Cocaine Metabolite Neg (Neg) U Marijuana (THC) Screen Pos H (Neg) COVID-19 Eval Order SARS-CoV-2 (PCR) (Negative) Influenza Type A (PCR) (Neg) Influenza Type B (PCR) (Neg) RSV (RT-PCR) (Neg) 11/23/20 11/23/20 11/23/20 Range/Units 21:13 21:13 21:13 WBC (4.8-10.8) K/uL RBC (4.7-6.1) M/uL Hgb (14.0-18.0) g/dL Hct (42-52) % MCV (80-100) fL MCH (25-34) pg MCHC (32-36) g/dL RDW Std Deviation (36.4-46.3) fL RDW Coeff of Luis (11.5-14.5) % Plt Count (130-400) K/uL MPV (7.4-10.4) fL Immature Gran % (Auto) % Neut % (Auto) % Lymph % (Auto) % Walsh % (Auto) % Eos % (Auto) % Baso % (Auto) % Neut # (Auto) (1.4-6.5) K/uL Lymph # (Auto) (1.2-3.4) K/uL Walsh # (Auto) (0.11-0.59) K/uL Eos # (Auto) (0-0.5) K/uL Baso # (Auto) (0-0.2) K/uL Immature Gran # (Auto) (0.00-0.02) K/uL ESR 22 H (0-20) mm/hr PT (9.0-12.0) Seconds INR (0.9-1.1) APTT (21.0-31.0) Seconds PTT Ratio Sodium 135 L (136-145) mmol/L Potassium 3.9 (3.5-5.1) mmol/L Chloride 103 (98-107) mmol/L Carbon Dioxide 26 (21-32) mmol/L Anion Gap 6.0 (3-11) BUN 7 (7-18) mg/dl Creatinine 1.14 (0.6-1.4) mg/dl Est Cr Clr Drug Dosing 82.7 ml/min Est GFR ( Amer) 84.0 Est GFR (Non-Af Amer) 72.5 BUN/Creatinine Ratio 6.1 L (10-20) Glucose 100 H (70-99) mg/dl Calcium 8.8 (8.5-10.1) mg/dl Magnesium 1.7 L (1.8-2.4) mg/dl Total Bilirubin 0.6 (0.2-1) mg/dl AST 18 (15-37) U/L ALT 44 (12-78) U/L Alkaline Phosphatase 97 (45-117) U/L Total Creatine Kinase 109 (39-308) U/L Troponin I < 0.015 (0-0.045) ng/ml C-Reactive Protein 16.20 H (0-0.29) mg/dl Total Protein 7.5 (6.4-8.2) gm/dl Albumin 3.1 L (3.4-5.0) gm/dl Globulin 4.4 H (2.5-4.0) gm/dl Albumin/Globulin Ratio 0.7 L (0.9-2) Procalcitonin 0.91 H (0-0.5) ng/ml Urine Color Urine Appearance (Clear) Urine pH (4.5-7.5) Ur Specific Cocoa (1.000-1.030) Urine Protein (Negative) Urine Glucose (UA) (Negative) Urine Ketones (Negative) Urine Blood (Negative) Urine Nitrite (Negative) Urine Bilirubin (Negative) Urine Urobilinogen (Negative) Ur Leukocyte Esterase (Negative) Urine WBC (Auto) (0-5) /hpf Urine RBC (Auto) (0-4) /hpf U Hyaline Cast (Auto) (0-5) /lpf U Epithel Cells (Auto) (0-5) /lpf Urine Bacteria (Auto) (Negative) Fluid Comment CSF Appearance CSF Color Xanthrochromic CSF WBC (0-5) /uL CSF RBC (0-) /uL CSF Cell Count Tube # CSF Chemistry Tube # CSF Glucose (40-70) mg/dl CSF Total Protein (15-45) mg/dl Urine Opiates Screen (Neg) Ur Methadone, Qual (Neg) Urine Barbiturates (Neg) Ur Phencyclidine (PCP) (Neg) U Amphetamin/Meth Scrn (Neg) MDMA (Ecstasy) Screen (Neg) U Benzodiazepines Scrn (Neg) Ur Cocaine Metabolite (Neg) U Marijuana (THC) Screen (Neg) COVID-19 Eval Order SARS-CoV-2 (PCR) (Negative) Influenza Type A (PCR) (Neg) Influenza Type B (PCR) (Neg) RSV (RT-PCR) (Neg) 11/23/20 Range/Units 22:02 WBC (4.8-10.8) K/uL RBC (4.7-6.1) M/uL Hgb (14.0-18.0) g/dL Hct (42-52) % MCV (80-100) fL MCH (25-34) pg MCHC (32-36) g/dL RDW Std Deviation (36.4-46.3) fL RDW Coeff of Lius (11.5-14.5) % Plt Count (130-400) K/uL MPV (7.4-10.4) fL Immature Gran % (Auto) % Neut % (Auto) % Lymph % (Auto) % Walsh % (Auto) % Eos % (Auto) % Baso % (Auto) % Neut # (Auto) (1.4-6.5) K/uL Lymph # (Auto) (1.2-3.4) K/uL Walsh # (Auto) (0.11-0.59) K/uL Eos # (Auto) (0-0.5) K/uL Baso # (Auto) (0-0.2) K/uL Immature Gran # (Auto) (0.00-0.02) K/uL ESR (0-20) mm/hr PT (9.0-12.0) Seconds INR (0.9-1.1) APTT (21.0-31.0) Seconds PTT Ratio Sodium (136-145) mmol/L Potassium (3.5-5.1) mmol/L Chloride (98-107) mmol/L Carbon Dioxide (21-32) mmol/L Anion Gap (3-11) BUN (7-18) mg/dl Creatinine (0.6-1.4) mg/dl Est Cr Clr Drug Dosing ml/min Est GFR ( Amer) Est GFR (Non-Af Amer) BUN/Creatinine Ratio (10-20) Glucose (70-99) mg/dl Calcium (8.5-10.1) mg/dl Magnesium (1.8-2.4) mg/dl Total Bilirubin (0.2-1) mg/dl AST (15-37) U/L ALT (12-78) U/L Alkaline Phosphatase (45-117) U/L Total Creatine Kinase (39-308) U/L Troponin I (0-0.045) ng/ml C-Reactive Protein (0-0.29) mg/dl Total Protein (6.4-8.2) gm/dl Albumin (3.4-5.0) gm/dl Globulin (2.5-4.0) gm/dl Albumin/Globulin Ratio (0.9-2) Procalcitonin (0-0.5) ng/ml Urine Color Urine Appearance (Clear) Urine pH (4.5-7.5) Ur Specific Cocoa (1.000-1.030) Urine Protein (Negative) Urine Glucose (UA) (Negative) Urine Ketones (Negative) Urine Blood (Negative) Urine Nitrite (Negative) Urine Bilirubin (Negative) Urine Urobilinogen (Negative) Ur Leukocyte Esterase (Negative) Urine WBC (Auto) (0-5) /hpf Urine RBC (Auto) (0-4) /hpf U Hyaline Cast (Auto) (0-5) /lpf U Epithel Cells (Auto) (0-5) /lpf Urine Bacteria (Auto) (Negative) Fluid Comment CSF Appearance Clear CSF Color Colorless Xanthrochromic No xanthochromia CSF WBC 2 (0-5) /uL CSF RBC 8 (0-) /uL CSF Cell Count Tube # 3 CSF Chemistry Tube # 1 CSF Glucose 70 (40-70) mg/dl CSF Total Protein 83.6 H (15-45) mg/dl Urine Opiates Screen (Neg) Ur Methadone, Qual (Neg) Urine Barbiturates (Neg) Ur Phencyclidine (PCP) (Neg) U Amphetamin/Meth Scrn (Neg) MDMA (Ecstasy) Screen (Neg) U Benzodiazepines Scrn (Neg) Ur Cocaine Metabolite (Neg) U Marijuana (THC) Screen (Neg) COVID-19 Eval Order SARS-CoV-2 (PCR) (Negative) Influenza Type A (PCR) (Neg) Influenza Type B (PCR) (Neg) RSV (RT-PCR) (Neg) Diagnostic Findings CT SCAN OF THE ABDOMEN AND PELVIS WITH IV CONTRAST CLINICAL HISTORY: Fever. COMPARISON STUDY: No priors. TECHNIQUE: Following the IV administration of 89 cc of Optiray 320, CT scan of the abdomen and pelvis is performed from the lung bases to the proximal femora. Images are reviewed in the axial, sagittal, and coronal planes. IV contrast was administered without complication. A dose lowering technique was utilized adhering to the principles of ALARA. The examination is compromised by motion artifact. CT DOSE: 620.61 mGy.cm FINDINGS: Lung bases: The heart is normal in size and without pericardial effusion. The lung bases are clear noting bibasilar atelectasis. Liver: The contrast-enhanced liver is normal in size, contour, and attenuation. There is no intrahepatic biliary ductal dilatation. The hepatic veins and portal veins are patent. Gallbladder: Unremarkable. Spleen: Normal in size and attenuation. Pancreas: Unremarkable. Adrenal glands: Unremarkable. Kidneys: The contrast enhanced kidneys are normal in size and without hydronephrosis. The kidneys enhance symmetrically. Abdominal vasculature: The abdominal aorta is normal in course and caliber noting scattered foci of atherosclerotic calcification. Bowel: There is no bowel obstruction. The appendix is well-visualized and normal. Peritoneum: No intraperitoneal free air is identified. Trace free fluid is seen in the pelvis. There is a fat-containing umbilical hernia. Lymphadenopathy: Mildly enlarged retroperitoneal and left iliac chain lymph nodes measure up to 10 mm in short axis. A mildly enlarged left inguinal node with surrounding infiltration on image #465 measures 2.3 x 1.4 cm. Pelvic viscera: The prostate gland is mildly enlarged and heterogeneous noting median lobe hypertrophy. The bladder wall appears thickened and trabeculated indicating chronic outlet obstruction. Skeletal structures: There is moderate lumbosacral spondylosis. No lytic or blastic lesions are seen. IMPRESSION: 1. There is a mildly enlarged left inguinal lymph node with surrounding infiltration, as well as minimally enlarged left iliac chain and retroperitoneal nodes. These are nonspecific and likely reactive. Correlated clearly for evidence of a left lower extremity infectious/inflammatory process. 2. Trace nonspecific free fluid in the pelvis is a nonspecific but abnormal finding and may be reactive. 3. Additional findings as above. ACT 112: Negative or not required by law. Electronically signed by: Griffin Amos M.D. 11/23/2020 11:08 PM Dictated: 11/23/202299Transcribed: 11/23/202299 = CT SCAN OF THE BRAIN WITHOUT IV CONTRAST CLINICAL HISTORY: Headache. COMPARISON STUDY: No priors. TECHNIQUE: Unenhanced axial CT scan of the brain is performed from the vertex to the skull base. A dose lowering technique was utilized adhering to the principles of ALARA. CT DOSE: 1462.50 mGycm FINDINGS: Brain parenchyma: The brain parenchyma is normal in appearance. There is no hemorrhage, mass effect, or evidence of acute territorial ischemia by CT criteria. Sampson-white matter differentiation is preserved. No extra-axial fluid collection is seen. Ventricles, sulci, cisterns: Normal in configuration. Intracranial vasculature: The visualized intracranial vasculature at the skull base is normal in appearance. Calvarium: Unremarkable. Sinuses and mastoids: The visualized paranasal sinuses are clear. The mastoid air cells are well pneumatized. Orbits: The bony orbits are grossly intact. IMPRESSION: No acute intracranial abnormality. ACT 112: Negative or not required by law. Electronically signed by: Griffin Amos M.D. 11/23/2020 8:38 PM Dictated: 11/23/202035Transcribed: 11/23/202035 SINGLE VIEW CHEST CLINICAL HISTORY: Fever. FINDINGS: An AP, portable, upright chest radiograph is obtained. No prior studies are available for comparison at the time of dictation. The cardiomediastinal silhouette is unremarkable. There is mild bibasilar atelectasis. No airspace consolidation or large pleural effusion is identified. No pneumothorax is seen. The bony thorax is grossly intact. IMPRESSION: No active disease in the chest. ACT 112: Negative or not required by law. Electronically signed by: Griffin Amos M.D. 11/23/2020 10:32 PM Dictated: 11/23/202230Transcribed: 11/23/202230 PG Care Time/CCT Total # of Minutes Spent Total Time Spent with Patient: Total time spent is greater than 50% in coordination of care (as documented) at patient's floor/unit and/or counseling patient: Coding Level of Care Code 68781 OBS Care - Level 2 Diagnoses Headache R51.9 Headache chronicity pattern: unspecified pattern Headache type: unspecified Intractability: not intractable Fever R50.9 Fever type: unspecified (1) Headache Headache chronicity pattern: unspecified pattern Headache type: unspecified Intractability: not intractable Qualified Code(s): R51.9 - Headache, unspecified (2) Fever Fever type: unspecified Qualified Code(s): R50.9 - Fever, unspecified
[2020-11-24] MEDS ORDERED: ACETAMINOPHEN 325 MG TAB PO PRN (01:59)
[2020-11-24] MEDS ORDERED: ONDANSETRON INJ 2 MG/ML 2 ML VIAL IV PRN (01:59)
[2020-11-24] MEDS ORDERED: VANCOMYCIN CONSULT ACTIVE PRN (01:59)
[2020-11-24] MEDS ORDERED: SODIUM CHLORIDE 0.9% 1000ML 1,000 ML IV SCH (01:59)
[2020-11-24] MEDS ORDERED: VANCOMYCIN HCL 2,250 MG in SODIUM CHLORIDE 0.9% 500 ML IV ONE (02:15)
[2020-11-24 02:20] LABS: Creatine Kinase 109 U/L (39-308); Magnesium 1.7 mg/dl (1.8-2.4)
[2020-11-24 03:40] LABS: Amphetamines+Metham, Urine Pos (Neg); Barbiturates, Urine Neg (Neg); Benzodiazepine, Urine Neg (Neg); Cocaine, Urine Neg (Neg); MDMA (Ecstacy), Urine Pos (Neg); Methadone, Urine Neg (Neg); Opiate, Urine Neg (Neg); Phencyclidine, Urine Neg (Neg)
[2020-11-24 06:56] LABS: Cryptococcus neoformans/ga PCR Not Detected (NotDetected); Cytomegalovirus PCR Not Detected (NotDetected); Enterovirus PCR Not Detected (NotDetected); Escherichia coli K1 PCR Not Detected (NotDetected); Haemophilius influenzae PCR Not Detected (NotDetected); Herpes Simplex Virus 1 PCR Not Detected (NotDetected); Herpes Simplex Virus 2 PCR Not Detected (NotDetected); Human Herpes Virus 6 PCR Not Detected (NotDetected); Human Parechovirus PCR Not Detected (NotDetected); Listeria monocytogenes PCR Not Detected (NotDetected); Neisseria meningitidis PCR Not Detected (NotDetected); Streptococcus agalactiae PCR Not Detected (NotDetected); Streptococcus pneumoniae PCR Not Detected (NotDetected); Varicella Zoster Virus PCR Not Detected (NotDetected)
[2020-11-24 08:38] LABS: Creatinine Clr Calc Pharmacy 85.1 ml/min; Est GFR (African American) 86.8; Est GFR (Non-African American) 74.9
--- NOTE | 2020-11-24 11:06 | Pharmacy Report ---
Pharmacy Abx Initial Consult - Date of Service November 24, 2020 - Pharmacy Dosing Scope Date of Consult: 11/24/20 Consultation requested by: Dr. Maria Fernanda Sandoval Pharmacy is consulted to initiate Vancomycin IV dosing therapy, order appropriate labs and adjust drug dose/frequency. - Subjective The patient is a 55 year old M admitted on 11/24/20 00:45. - Objective Height: 5 ft 8 in Weight: 95 kg Vital Signs (Past 12hrs): Vital Signs Temp Pulse Pulse Pulse Resp BP BP 11/24/20 07:10 36.4 C L 84 20 11/24/20 02:00 36.7 C 80 16 11/24/20 01:00 90 89 16 103/86 103/86 11/24/20 00:30 93 H 16 104/85 11/24/20 00:29 91 H 20 120/86 11/24/20 00:00 94 H 15 120/86 11/23/20 23:30 98 H 16 100/52 L BP Pulse Ox 11/24/20 07:10 120/76 99 11/24/20 02:00 92/63 L 98 11/24/20 01:00 90 11/24/20 00:30 92 11/24/20 00:29 92 11/24/20 00:00 95 11/23/20 23:30 Lab Results (24hrs): Laboratory Tests (24 Hours) 11/24/20 11/23/20 11/23/20 07:46 21:13 21:13 WBC Neut # (Auto) ESR 22 H Creatinine 1.11 Est Cr Clr Drug Dosing 85.1 Total Creatine Kinase C-Reactive Protein Procalcitonin 0.91 H 11/23/20 11/23/20 21:13 21:13 WBC 26.78 H Neut # (Auto) 24.02 H ESR Creatinine 1.14 Est Cr Clr Drug Dosing 82.7 Total Creatine Kinase 109 C-Reactive Protein 16.20 H Procalcitonin Micro Results: 11/23/20 22:02 Gram Stain - Final Cerebral Spinal Fluid CSF Culture - Pending 11/23/20 20:18 Urine Culture - Pending Urine,Clean Catch - Assessment & Plan Assessment 55 year old M presented to ER for persistent, severe headache. Concern for meningitis. Plan Vancomycin IV * Loading dose: 2250mg (~24 mg/kg) * Maintenance dose: 1000 mg IV every 8 hours * Patient meets criteria for vancomycin AUC dosing nomogram * AUC/ROLO is the preferred PK/PD target for vancomycin Target AUC/ROLO = 400-600 AUC guided dosing is effective and associated with decreased risk of nephrotoxicity Pharmacy will continue to follow and will adjust dose/frequency as necessary. Thank you.
[2020-11-24 11:40] LABS: Hematocrit (blood only) 42.2 % (42-52); Hemoglobin 14.9 g/dL (14.0-18.0); Mean Corpuscular Hemoglobin 29.3 pg (25-34); Mean Corpuscular Hgb Conc 35.3 g/dL (32-36); Mean Corpuscular Volume 83.1 fL (80-100); Mean Platelet Volume 9.6 fL (7.4-10.4); Platelet Count 306 K/uL (130-400); RDW Coefficient of Variation 13.7 % (11.5-14.5); RDW Standard Deviation 41.5 fL (36.4-46.3); Red Blood Count 5.08 M/uL (4.7-6.1)
[2020-11-24] MEDS ORDERED: GADOBUTROL 10ML VIAL IV ONE (11:57)
[2020-11-24 11:59] LABS: BUN Creatinine Ratio 14.9 (10-20); C Reactive Protein 18.4 mg/dl (0-0.29); Calcium 8.9 mg/dl (8.5-10.1); Creatinine Clr Calc Pharmacy 85.8 ml/min; Est GFR (African American) 87.7; Est GFR (Non-African American) 75.7; Potassium 3.9 mmol/L (3.5-5.1)
[2020-11-24 12:06] LABS: Basophils # (auto) 0.01 K/uL (0-0.2); Immature Granulocytes # (auto) 0.09 K/uL (0.00-0.02); Immature Granulocytes % (auto) 0.4 %; Lymphocytes # (auto) 0.82 K/uL (1.2-3.4); Lymphocytes % (auto) 3.5 %; Monocytes % (auto) 4.3 %; Neutrophils # (auto) 21.48 K/uL (1.4-6.5); Neutrophils % (auto) 91.8 %
[2020-11-24 12:19] LABS: Albumin Globulin Ratio 0.6 (0.9-2); Bilirubin,Total 0.3 mg/dl (0.2-1); Globulin 4.7 gm/dl (2.5-4.0); Total Protein 7.7 gm/dl (6.4-8.2)
[2020-11-24] MEDS: VANCOMYCIN HCL 1,000 MG in SODIUM CHLORIDE 0.9% 250 ML IV SCH ×2 (12:58→20:51)
--- NOTE | 2020-11-24 13:29 | Magnetic Resonance Report ---
MRI OF THE BRAIN WITHOUT AND WITH IV CONTRAST CLINICAL HISTORY: VALENZUELA, fever, somnolence COMPARISON STUDY: Head CT November 23, 2020. TECHNIQUE: Utilizing a 1.5 Radha magnet and dedicated coil, multiplanar, multiecho imaging of the br ain was performed pre and postcontrast administration. IV administration of Gadavist contrast was un eventful. FINDINGS: There are no foci of restricted diffusion to suggest acute infarct. No acute intracranial h emorrhage, midline shift or mass effect is present. Brain volume is normal. Ventricular system is nor mal. Basal cisterns are patent. There are no extra-axial collections. Flow-voids for the major intrac ranial vessels are present. No intracranial masses are noted. Note is made of a small 6 mm focus of e nhancement within the right frontal lobe shown on axial T1 postcontrast image and coronal im age 10. There is a subtle corresponding T2 hyperintense focus shown on coronal FLAIR images a nd . There is questionable mild pachymeningeal dural enhancement. Numerous white matter T2 hy perintense foci are noted. These measure up to 8 mm. Many of these are periventricular in distributio n. There is a 7 mm focus within the left internal capsule. Orbits are unremarkable. IMPRESSION: 1. Numerous white matter T2 hyperintense foci, many of which are in a periventricular distribution. A lthough nonspecific, the appearance raises the possibility of a demyelinating disease such as multipl e sclerosis. An infectious process such as Lyme disease is within the differential but considered les s likely. Suspected mild enhancement of a 6 mm T2 hyperintense lesion within the right frontal lobe m ay reflect active demyelination. 2. No evidence for acute infarction. 3. Questionable mild pachymeningeal dural enhancement. ACT 112: Negative or not required by law. Electronically signed by: Cipriano Putnam M.D. 11/24/2020 1:27 PM
[2020-11-24] MEDS: NORMOSOL-R 1,000 ML IV SCH (15:09)
--- NOTE | 2020-11-24 15:26 | Electrocardiogram Report ---
Test Reason : Blood Pressure : / mmHG Vent. Rate : 112 BPM Atrial Rate : 112 BPM P-R Int : 172 ms QRS Dur : 078 ms QT Int : 326 ms P-R-T Axes : 037 023 022 degrees QTc Int : 444 ms Poor data quality, interpretation may be adversely affected Sinus tachycardia Possible Left atrial enlargement Borderline ECG No previous ECGs available Confirmed by Luke Stauffer ([id number]) on 11/24/2020 3:26:26 PM Referred By: REFERRED SELF Confirmed By:Luke Stauffer
[2020-11-24 18:28] LABS: Appearance Urine Clear (Clear); Bacteria Urine Automated Negative (Negative); Bilirubin Urine Negative (Negative); Blood Urine Trace (Negative); Color Urine Yellow; Epithelial Cell Urine Auto 20-30 /lpf (0-5); Glucose Urine UA Negative (Negative); Ketones Urine Negative (Negative); Leukocyte Esterase Urine 1+ (Negative); Nitrite Urine Negative (Negative); Protein Urine Negative (Negative); RBC Urine Automated 0-4 /hpf (0-4); Specific Gravity Urine 1.021 (1.000-1.030); Urobilinogen Urine Negative (Negative); pH Urine 5.5 (4.5-7.5)
[2020-11-24] MEDS ORDERED: cefTRIAXone SODIUM 2,000 MG in DEXTROSE 5% 50 ML IV SCH (20:00)
[2020-11-25] MEDS: NORMOSOL-R 1,000 ML IV SCH (04:16)
[2020-11-25] MEDS: VANCOMYCIN HCL 1,000 MG in SODIUM CHLORIDE 0.9% 250 ML IV SCH (04:16)
[2020-11-25 05:58] LABS: Hematocrit (blood only) 38.6 % (42-52); Hemoglobin 13.5 g/dL (14.0-18.0); Mean Corpuscular Hemoglobin 28.8 pg (25-34); Mean Corpuscular Volume 82.5 fL (80-100); Mean Platelet Volume 9.8 fL (7.4-10.4); Platelet Count 293 K/uL (130-400); RDW Coefficient of Variation 13.9 % (11.5-14.5); RDW Standard Deviation 41.8 fL (36.4-46.3); Red Blood Count 4.68 M/uL (4.7-6.1); White Blood Count 26.91 K/uL (4.8-10.8)
[2020-11-25 06:24] LABS: Creatinine Clr Calc Pharmacy 84.3 ml/min; Est GFR (African American) 85.9; Est GFR (Non-African American) 74.1; Potassium 3.8 mmol/L (3.5-5.1)
[2020-11-25 06:43] LABS: Basophils # (auto) 0.02 K/uL (0-0.2); Basophils % (auto) 0.1 %; Dohle Bodies Occasional; Immature Granulocytes % (auto) 0.4 %; Lymphocytes # (auto) 2.37 K/uL (1.2-3.4); Lymphocytes % (auto) 8.8 %; Monocytes # (auto) 2.37 K/uL (0.11-0.59); Monocytes % (auto) 8.8 %; Neutrophils # (auto) 22.05 K/uL (1.4-6.5); Neutrophils % (auto) 81.9 %; Toxic Vacuolation 1+
--- NOTE | 2020-11-25 08:17 | Discharge Summary ---
Date of Service November 25, 2020 Admission HPI Per Admitting Provider Kevin Waite is a 55yo male with no significant past medical history presenting with VALENZUELA and fever. 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 He reports gradual onset of VALENZUELA over the last 2 nights - [place], "worst headache of his life has been present the entire time but waxing and waning in severity. OTC agents with no relief. He denies trauma, neck stiffness, back pain, CP, palpitations, cough, SOB, abdominal pain, nausea, vomiting, diarrhea or constipation Denies rigors, malaise, back pain, flank pain, dysuria, rashes, joint pain. NO additional complaints at this time. Patient reportedly febrile to 103 prior to arrival. He received Benadryl and Phenergan prior to my encounter - patient quite somnolent but arousable -answers some questions appropriately then falls back to sleep LP performed in the ER ER Course: Dexamethasone, Benadryl,, Phenergan NSS, Tylenol, Ceftriaxone Principal Diagnosis headache Discharge Exam General: patient is ambulating well, AA&O x 3 Skin: warm, dry, intact, no rashes or lesions HEENT: NC/AT, PERRLA, EOMI, anicteric sclera, conjunctiva without injection, external ear normal to inspection and nontender, nares patent, moist mucus membranes, dentition intact, no oropharyngeal lesions, neck supple, trachea midline, no LAD, no thyromegaly, no JVD Heart: +S1/S2, regular, no m/r/g Lungs: equal air entry bilaterally, no rales/rhonchi/wheezes Abd: +BS, soft, NT/ND, no masses/organomegaly/ascites Ext: warm, 2+ pulses in UE/LE bilaterally, no clubbing/cyanosis or edema Neuro: nonfocal, AA&O x 3, speech intact, no facial droop, moving all extremities on command with equal strength 5/5 Discharge Data Allergies Allergy/AdvReac Type Severity Reaction Status Date / Time No Known Allergies Allergy Unverified 11/23/20 20:10 Consultations 11/23/20 23:34 ED Decision to Admit Stat Ordered Studies 11/23/20 19:44 CT head/brain wo con Stat 11/23/20 22:06 CT abd pelvis IV con only Stat 11/24/20 01:59 MR brain wo/w con Routine Hospital Course (1) Headache: 2d of severe VALENZUELA, report of fever, laboratory evidence of infection to include leukocytosis, elevated procalcitonin. LP performed by ER staff with elevated protein of 83.6, otherwise unremarkable. Gram stain with no WBC or organisms. Concern for aseptic meningitis as underlying cause. Patient presently afebrile, HD stable, nonfocal neurological exam. Altered level of consciousness seems to have occurred after receiving Benadryl and Phenergen in the ER. Immunocompetent -Observation to medical -Check CSF panel -Neuro checks with [facility] -MRI brain On day of discharge: Patient is improving. Unsure of source of elevated WBC. However, Plumbar puncture does not show evidence of bacterial meningitis Perhaps this may be viral meningitis, however patient is improving. Had discussion with neurology. Patient from Neurology standpoint is cleared for discharge. 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 Willl provide CD for patient to take with him to [place]. Cultures are neatuve. Will empicirally treat with doxycyline and cefdinir for 1 week. Will recommend patient follows up with PCP once he returns. Urine culture and blood culture are negative. 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 He will call one in the future to be established-per patient request. [facility] [address] [place] [address] @ [phone] ) Diet: Regular Addtl Attending Provider Instructions: You were seen for a possible infection. Your lumbar puncture showed evidence of a possible viral meningitis. Your urine had a large amount of WBC but no signs of bacterial. From a meningitis standpoint, d/w Neurologist who does not feel this to be bacterial meningitis given your lumbar puncture results. You were given antibiotics to help with a possible infection due to your elevated White blood count. Will recommend you continue with the antibiotics for at least 1 week. Please followup with your PCP as soon as you return. If you feel worse, fever, chills, fatigue weakness, you will likely have to stop at another hospital. Pending Studies at Discharge: No Stand-Alone Forms: My [facility], Smoking Cessation Medications and DC Order Prescriptions: New doxycycline hyclate 100 mg capsule 100 mg PO BID 7 Days Qty: 14 RF: 0 cefdinir 300 mg capsule 300 mg PO BID 7 Days Qty: 14 RF: 0 No Action No Known Home Medications RF: 0 Discharge Orders: Discharge Order (Routine); Ordered 11/25/20 Ordered By: Christian Hyde Admission Data Admit Date/Time: 11/24/20 22:18 Attending Provider: Christian Hyde Admit Provider: Maria Fernanda Sandoval Primary Care Provider: PCP,NO Other Providers: Maria Fernanda Sandoval Other Interventions: Discharge Summary Assessment (RN) Last Done: 11/25/20 09:35 Coding Level of Care Code D/C Day Management >30 mins Diagnoses Headache R51.9 Headache chronicity pattern: unspecified pattern Headache type: unspecified Intractability: not intractable Fever R50.9 Fever type: unspecified Time Spent (min) 32
[2020-11-25 10:08] LABS: Lyme Ab IgG w/WB Rflx Negative (Negative); Lyme Ab IgM w/WB Rflx Negative (Negative)
[2020-11-25] MEDS ORDERED: VANCOMYCIN TROUGH ONE (11:30)
[2020-11-29 09:36] LABS: Amphetamine Urine, Confirm 2160 ng/mL (<250); MDA negative; MDEA negative; MDMA (Ecstasy) Urine, Confirm negative; Marijuana Quant, GCMS Urine 37 ng/mL (<5); Methamphetamine, Ur Confirm >15000 ng/mL (<250)
== END 2020-11-25 10:49 | disposition home or self-care (01) | DRG 76 ==
LOC: ED 19:36 → 3E 19:36 → SUATTDRO 11-24 00:45 → 3E 11-24 01:46